=== PATIENT | female | born 1980 | race Caucasian/White ===

== ENCOUNTER 2017-03-23 13:44 | Outpatient (CLI) | payer OTHER ==
--- NOTE | 2017-03-23 15:17 | Diagnostic Imaging Report ---
[facility] [id number] [facility].[address] [address] Report Submission Date: Mar 23, 2017 3:03:05 PM CDT Patient Study Name: ZACHARY CORNEJO Date: Mar 23, 2017 1:55:02 PM CDT Modality Type: CR Gender: F Description: CHEST : [birth year] Institution: [facility] Physician TAWNY DENTON - ER Chest 1 view Date of Exam: March 23, 2017. History: CHEST PRESSURE. SMOKER. (Hx) / CHEST PRESSURE (DICOM Hx) / CHEST PRESSURE (Pt comments) Findings: No comparison studies are provided. The film quality is suboptimal. The cardiac and mediastinal silhouettes are normal. Questionable hazy right lower lobe infiltrate is poorly defined. The trachea is midline. The pulmonary vascularity appears within normal limits. Impression: Suboptimal film quality. Partial hazy right lower lobe infiltrate. Electronically signed on Mar 23, 2017 3:03:05 PM CDT by: Nora CHRIS
--- NOTE | 2017-03-23 15:22 | Diagnostic Imaging Report ---
KIRK ANDERS [facility] [address] [facility] [address] [address] Report Submission Date: Mar 23, 2017 3:10:50 PM CDT Patient Study Name: MARITZA LIRIANO Date: Mar 23, 2017 1:58:17 PM CDT Modality Type: US Gender: F Description: UNILAT LTD STDY EXT VEINS : 76 Institution: [facility] Physician: KIRK ANDERS Ultrasound venous Doppler of left lower extremity History: Left calf pain and swelling after popping sensation while walking downstairs. Findings: Visualized portions of the left external iliac, common femoral, femoral, profunda femoris, greater saphenous, popliteal, and posterior tibial veins exhibit normal respiratory phasicity, compressibility, and augmentation without hall scale or color Doppler evidence of deep venous thrombosis. Impression: Patent left lower extremity deep veins. Electronically signed on Mar 23, 2017 3:10:50 PM CDT by: Andre CHRIS
== END 2017-03-23 13:45 ==
LOC: RAD 13:44
PROVIDERS: ATTEND Family Medicine
DX: M79.662 Pain in left lower leg (principal)
CPT/HCPCS: 93971

== ENCOUNTER 2018-01-04 09:22 | Outpatient (CLI) | payer BC ==
[2018-01-04 09:39] LABS: BASOPHILS % 0.5 (0.0-1.5); EOSINOPHILS % 3.1 % (0.0-6.8); MEAN CORPUSCULAR HEMOGLOBIN 30.8 pg (28.0-34.0); MEAN CORPUSCULAR VOLUME 95.9 fl (80.0-100.0); MONOCYTES % 3.8 % (0.0-11.0); NEUTROPHILS # 3.3 # k/uL (1.4-7.7)
[2018-01-04 10:04] LABS: eGFR (African) > 60; eGFR (Non-African) > 60
== END 2018-01-04 09:41 ==
LOC: LAB 09:22
PROVIDERS: ATTEND Family Medicine
DX: Z00.00 Encounter for general adult medical examination without abnormal findings (principal)
CPT/HCPCS: 36415; 80053; 80061; 84443; 85025